=== PATIENT | female | born 1930 | race Caucasian/White ===

== ENCOUNTER 2016-10-04 07:35 | Day surgery (SDC) | payer MEDICARE ==
--- NOTE | ~2016-10-04 | EGD ---
EGD REPORT [facility] [address] [address] NAME: SILVIA PULIDO : 28 [place] : [place] [facility] [place]#: [id number] AGE: 86 ADM/REG DATE : 10/04/16 MR#: [id number] REPORT SERV DATE: 10/04/16 DICTATED BY: JESS SENA DATE: 10/04/16 REPORT STATUS : Draft TRANSCRIBED BY: [facility] DATE: 10/04/16 Endoscopy Center Patient Name: Silvia Pulido Date of : 1930 Attending MD: EJSS SENA MD Procedure Date No Time: 10/04/2016 Procedure: Upper GI endoscopy Indications: Nausea with vomiting, Delayed gastric emptying on recent GES Referring MD: ANABEL BUNDY MD Medicines: Propofol per Anesthesia Complications: No immediate complications. Estimated blood loss: None. Procedure: Pre-Anesthesia Assessment: - After reviewing the risks and benefits, the patient was deemed in satisfactory condition to undergo the procedure. - Prior to the procedure, a History and Physical was performed, and patient medications and allergies were reviewed. The patient's tolerance of previous anesthesia was also reviewed. The risks and benefits of the procedure and the sedation options and risks were discussed with the patient. All questions were answered, and informed consent was obtained. Prior Anticoagulants: The patient has taken Plavix (clopidogrel), last dose was 2 days prior to procedure. ASA Grade Assessment: III - A patient with severe systemic disease. After reviewing the risks and benefits, the patient was deemed in satisfactory condition to undergo the procedure. After obtaining informed consent, the endoscope was passed under direct vision. Throughout the procedure, the patient's blood pressure, pulse, and oxygen saturations were monitored continuously. The GIF [id number] was introduced through the mouth, and advanced to the third part of duodenum. The upper GI endoscopy was accomplished without difficulty. The patient tolerated the procedure well. Findings: The examined esophagus was normal. A medium-sized hiatus hernia was present. Diffuse moderate inflammation characterized by erythema and granularity was found in the gastric antrum. Biopsies were taken with a cold forceps for histology. Estimated blood loss: none. A moderate amount of bile was suctioned from the body of the stomach. The pylorus was normal and widely patent. Area was successfully injected EGD REPORT [place] [id number] [facility] [place]. [address] NAME: SILVIA PULIDO : [birth year] STATUS : REG [facility]#: [id number] AGE: 86 ADM/REG DATE : 10/04/16 MR#: [id number] REPORT SERV DATE: 10/04/16 DICTATED BY: JESS SENA DATE: 10/04/16 REPORT STATUS : Draft TRANSCRIBED BY: [employer] DATE: 10/04/16 with 100 units botulinum toxin. The examined duodenum was normal. Impression: - Normal esophagus. - Hiatus hernia. - Bile gastritis. Biopsied. - Normal pylorus. Injected with botulinum toxin. - Normal examined duodenum. - GERD. - Delayed gastric emptying. - Moderate oropharyngeal dysphagia without aspiration on recent MBS. - IBS-C. Recommendation: - Discharge patient to home (ambulatory). - Resume mechanical soft diet with small, frequent feedings. - Continue Prilosec (omeprazole) 40 mg twice daily. - Continue Linzess 290 mcg daily for constipation. - Continue hyoscyamine and Zofran (ondansetron) as needed. - Follow-up in the office in 1 month with [facility]. - Patient has a contact number available for emergencies. The signs and symptoms of potential delayed complications were discussed with the patient. Return to normal activities tomorrow. Written discharge instructions were provided to the patient. Procedure Code(s): --- Professional --- 71376, 59, Esophagogastroduodenoscopy, flexible, transoral; with directed submucosal injection(s), any substance 79171, Esophagogastroduodenoscopy, flexible, transoral; with biopsy, single or multiple Diagnosis Code(s): --- Professional --- K44.9, Diaphragmatic hernia without obstruction or gangrene K29.60, Other gastritis without bleeding K21.9, Gastro-esophageal reflux disease without esophagitis R11.2, Nausea with vomiting, unspecified CPT copyright 2013 [employer]. All rights reserved. The codes documented in this report are preliminary and upon certified medical coder review may EGD REPORT [address] [address] NAME: SILVIA PULIDO : 28 [place] [facility] [place]#: [id number] AGE: 86 ADM/REG DATE : 10/04/16 MR#: [id number] REPORT SERV DATE: 10/04/16 DICTATED BY: JESS SENA. DATE: 10/04/16 REPORT STATUS : Draft TRANSCRIBED BY: [employer] DATE: 10/04/16 be revised to meet current compliance requirements. JESS SENA MD 10/04/2016 9:00 AM This report has been signed electronically. Number of Addenda: 0 Note Initiated On: 10/04/2016 8:29 AM Scope Withdrawal Time 0 hours 0 minutes 0 seconds
[~2016-10-04 07:35] MED LIST: ALTOREX150 MG OR; ASAB PO; DSS PO; GLYCAD PR; KAPIDEX30 MG PO; KEPPRA XR500 MG PO; KEPPRA1000 MG PO; KEPPRA500 PO; LAMICTAL10 PO; LAMICTAL150 MG PO; LAMICTAL25 PO; LOP25 PO; LYRICA75 PO; MCZ125 PO; MIRALAXPKT PO; MONODOX100 MG PO; MYLICON 40 MG T40 MG PO; PLAVIX PO; PRILO PO; SEROQUEL25 PO; ZANTAC 150 PO; ZANTAC150 MG PO; ZOCOR20 PO; ZONEGRAN PO
== END 2016-10-04 23:59 | disposition home or self-care (01) ==
LOC: DMU 07:35
PROVIDERS: Internal Medicine Gastroenterology
PROC: 0DB68ZX Excision of Stomach, Via Natural or Artificial Opening Endoscopic, Diagnostic (ICD-10-PCS; principal; 2016-10-04 09:00)
DX: K29.50 Unspecified chronic gastritis without bleeding (principal); K44.9 Diaphragmatic hernia without obstruction or gangrene; K21.9 Gastro-esophageal reflux disease without esophagitis; K58.1 Irritable bowel syndrome with constipation; Z95.1 Presence of aortocoronary bypass graft; I69.320 Aphasia following cerebral infarction; G40.909 Epilepsy, unspecified, not intractable, without status epilepticus; D64.9 Anemia, unspecified; F03.90 Unspecified dementia, unspecified severity, without behavioral disturbance, psychotic disturbance, mood disturbance, and anxiety; L30.9 Dermatitis, unspecified; K31.84 Gastroparesis; Z88.1 Allergy status to other antibiotic agents; Z96.1 Presence of intraocular lens; I11.0 Hypertensive heart disease with heart failure; I50.9 Heart failure, unspecified; J45.909 Unspecified asthma, uncomplicated; M19.90 Unspecified osteoarthritis, unspecified site; M85.80 Other specified disorders of bone density and structure, unspecified site; Z90.49 Acquired absence of other specified parts of digestive tract; Z90.710 Acquired absence of both cervix and uterus; Z79.02 Long term (current) use of antithrombotics/antiplatelets; Z88.0 Allergy status to penicillin; Z79.82 Long term (current) use of aspirin; Z79.899 Other long term (current) drug therapy; Z98.42 Cataract extraction status, left eye; Z98.41 Cataract extraction status, right eye; Z88.5 Allergy status to narcotic agent; Z98.890 Other specified postprocedural states
CPT/HCPCS: 88305; 88342; J0585